=== PATIENT | male | born 1965 | race Caucasian/White ===

== ENCOUNTER → 2017-11-27 | Outpatient (CLI) | payer BC ==
[~2017-11-27] MED LIST: INVOKANA300 MG PO; METFORMIN HCL1000 MG PO; SIMVASTATIN20 MG PO
== END | disposition home or self-care (01) ==
LOC: CDC 15:36
DX: Z01.810 Encounter for preprocedural cardiovascular examination (principal); M25.521 Pain in right elbow; M77.11 Lateral epicondylitis, right elbow; E11.9 Type 2 diabetes mellitus without complications; R94.31 Abnormal electrocardiogram [ECG] [EKG]
CPT/HCPCS: 93000